=== PATIENT | female | born 1985 | race Caucasian/White ===

== ENCOUNTER 2018-11-27 19:42 | Emergency (ER) | payer OTHER ==
[~2018-11-27] VITALS: Ht 170.2 cm; Wt 112.5 kg
[~2018-11-27 19:42] MED LIST: Z.0.PRENATAL VITAM1; Z.0.ZOFRAN4 MG PO; [UNRECOGNIZED DRUG - OTHER] PO
--- OUTSIDE RECORDS SUMMARY | 2018-11-27 19:45 | XMS REPORT ---
Author Author [facility] Address Unknown Phone Unavailable Care Team Providers Care Window Glazier Name Role Phone Unavailable Unavailable Payers Payer Name Policy Type Policy Number Effective Date Expiration Date Problems This patient has no known problems. Allergies, Adverse Reactions, Alerts Allergy Name Allergy Type Status Severity Reaction(s) Onset Date Inactive Date Treating Clinician Comments No Known Allergies DA Active U 2018-08-05 00:00:00 ibuprofen DA Active [place] 2017-02-15 00:00:00 Medications This patient has no known medications.
[2018-11-27 21:48] LABS: AMPHETAMINES SCREEN,URINE NEGATIVE (NEGATIVE); BENZODIAZEPINES SCREEN,URINE NEGATIVE (NEGATIVE); PHENCYCLIDINE SCREEN,URINE NEGATIVE (NEGATIVE)
[2018-11-27 21:49] LABS: BASOPHILS % 0.4 % (0.0-1.0); EOSINOPHILS # (AUTO) 0.2 (0.0-0.4); EOSINOPHILS % 2.7 % (0.0-6.0); HEMATOCRIT 35.3 % (34.2-44.1); HEMOGLOBIN 11.1 g/dL (12.0-16.0); LYMPHOCYTES # (AUTO) 2.8 (1.0-3.2); LYMPHOCYTES % 33.9 % (18.0-39.1); MEAN CORPUSCULAR HEMOGLOBIN 26.5 pg (28-32); MEAN CORPUSCULAR HGB CONC 31.4 g/dL (31-35); MEAN CORPUSCULAR VOLUME 84.2 fL (81-99); MONOCYTES # (AUTO) 0.6 (0.2-0.8); MONOCYTES % 7.8 % (4.4-11.3); NEUTROPHILS # (AUTO) 4.5 (2.1-6.9); NEUTROPHILS % 54.8 % (38.7-80.0); PLATELET COUNT 254 x10e3/uL (140-360); PREGNANCY TEST, URINE NEGATIVE (NEGATIVE); RED BLOOD COUNT 4.19 x10e6/uL (3.6-5.1); RED CELL DISTRIBUTION WIDTH 13.5 % (11.7-14.4)
[2018-11-27 21:56] LABS: ANION GAP 14.5 mmol/L (8-16); BLOOD UREA NITROGEN 11 mg/dL (7-26); BUN/CREATININE RATIO 16 (6-25); CALCIUM 9.5 mg/dL (8.4-10.2); CARBON DIOXIDE 26 mmol/L (22-29); CHLORIDE 103 mmol/L (98-107); EST GLOMERULAR FILTRATION RATE > 60 ML/MIN (60-); GLUCOSE 80 mg/dL (74-118); POTASSIUM 3.5 mmol/L (3.5-5.1); SODIUM 140 mmol/L (136-145)
[2018-11-27] MEDS ORDERED: DIAZEPAM 5 MG TAB PO PRN ×2 (22:00→22:30)
[2018-11-27] MEDS ORDERED: DIAZEPAM 5 MG TAB PO NR (22:00)
[2018-11-27 22:25] LABS: SALICYLATE < 5.0 mg/dL (0-30)
--- NOTE | 2018-11-27 22:27 | NUR ---
MAT TEAM CALLED, WILL CALL BACK WITH ETA
--- NOTE | 2018-11-27 22:30 | NUR ---
BREANNA WITH MAT TEAM CALLED, ETA 30-40 MINUTES
[2018-11-27 22:58] LABS: ACETAMINOPHEN < 3 ug/mL (10-30)
[2018-11-27] MEDS ORDERED: LORAZEPAM INJ 2 MG/ML VIAL IM ONE (23:15)
--- NOTE | 2018-11-27 23:34 | NUR ---
BREANNA WITH MAT TEAM ON UNIT
--- NOTE | 2018-11-28 01:16 | NUR ---
ER MD AT BEDSIDE PT REQUEST MEDICATION FOR "PAIN ALL OVER."
[2018-11-28] MEDS ORDERED: CLONIDINE HCL 0.1 MG/24 HR 1 EA PATCH TOP ONE (01:30)
--- NOTE | 2018-11-28 02:00 | NUR ---
CHART SENT TO [facility] [place] BY [facility]O TEAM
--- NOTE | 2018-11-28 04:40 | NUR ---
nurse to nurse report given to Jocelyn ABREU at [facility] [place]
--- NOTE | 2018-11-28 04:40 | NUR ---
PT TO BE ADMITTED TO DR. Nehemias LEES, , CALLED FOR DR MAHSA CARLIN
--- NOTE | 2018-11-28 04:52 | NUR ---
[facility] CALLED FOR TRANSPORT, ETA 30-45 MINUTES
[2018-11-28 06:30] VITALS: BP 124/89
== END 2018-11-28 06:15 ==
LOC: ER 19:42
DX: R45.851 Suicidal ideations (principal); F32.9 Major depressive disorder, single episode, unspecified
CPT/HCPCS: 36415; 80048; 80307; 80320; 80329 ×2; 81025; 85025; 99284; J2060